=== PATIENT | male | born 1990 | race American Indian/Alaskan Native ===

== ENCOUNTER 2025-01-18 18:38 | Emergency (ER) | payer BC, MEDICAID, OTHER ==
[2025-01-18 20:16] LABS: BASOPHILS PERCENT AUTO 0.4 % (0.0-1.0); EOSINOPHILS PERCENT AUTO 1.6 % (1.0-3.0); LYMPHOCYTES PERCENT AUTO 28.6 % (20.5-50.1); MONOCYTES PERCENT AUTO 10.6 % (2-8); NEUTROPHILS PERCENT AUTO 58.8 % (42.2-75.2); PLATELET COUNT,PLT 292 10^3/uL (150-450); RED BLOOD CELL COUNT 4.76 10^6/uL (4.6-6.2); WHITE BLOOD CELL COUNT,WBC 8.3 10^3/uL (5.0-10.0)
[2025-01-18 20:39] LABS: A/G RATIO 0.83; ALANINE AMINOTRANSFERASE,ALT 15.0 U/L (16-63); ASPARTATE AMNIOTRANSFERASE,AST 7.0 U/L (15-37); BILIRUBIN TOTAL 0.2 mg/dL (0.2-1.0); BLOOD UREA NITROGEN,BUN 7.0 mg/dL (7-18); CARBON DIOXIDE,CO2 33.0 mmol/L (21-32); CHLORIDE,CL 104.0 mmol/L (98-107); CREATININE 0.92 mg/dL (0.70-1.30); EST CRCL DRUG DOSING (CG) 121.63 mL/min; ESTIMATED GFR 113.0 mL/min (>=60); GLUCOSE RANDOM 121.0 mg/dL (70-99); POTASSIUM,K 4.0 mmol/L (3.5-5.1); PROTEIN TOTAL,TP 6.6 g/dL (6.4-8.2); SODIUM,NA 141.0 mmol/L (136-145)
[2025-01-18] MEDS: Amoxicillin/Clavulanate K 875-125 MG Tab PO ONE (21:00)
[2025-01-18] MEDS: Ketorolac 30 MG/ML SDV IM ONE (21:00)
[2025-01-18 21:28] VITALS: BP 139/65; PULSE 71
== END 2025-01-18 21:27 | disposition home or self-care (01) ==
LOC: DL.ED 18:38
DX: K04.7 Periapical abscess without sinus (principal); K02.9 Dental caries, unspecified; K03.81 Cracked tooth; F17.210 Nicotine dependence, cigarettes, uncomplicated; Z86.16 Personal history of COVID-19
CPT/HCPCS: 36415; 80053; 85025; 96372; 99283; A9270; J1885